=== PATIENT | male | born 1940 | race African-American/Black ===

== ENCOUNTER → 2017-11-29 | Outpatient (CLI) | payer MEDICARE, OTHER ==
--- NOTE | 2017-11-29 17:26 | Diagnostic Imaging Report ---
Indication: Cough, preop Technique: XRAY Chest 2v Comparison: CT chest 02/15/2016 Findings: Heart size and mediastinal contours are stable. There is no focal airspace consolidation, pleural effusion or pneumothorax. There is chronic fracture deformity of the right clavicle and anterior right second rib. Multilevel degenerative changes of the spine are seen. No acute osseous abnormality noted. Impression: No radiographic evidence of acute cardiopulmonary disease. Stable chronic findings as detailed above.
== END | disposition home or self-care (01) ==
LOC: RAD 13:09
DX: I10 Essential (primary) hypertension (principal); R05 Cough
CPT/HCPCS: 71046